=== PATIENT | female | born 1960 | race Caucasian/White ===

== ENCOUNTER → 2018-05-14 | Outpatient (CLI) | payer OTHER ==
--- NOTE | 2018-05-14 08:56 | Diagnostic Imaging Report ---
PROCEDURE:X-RAY ABDOMEN - KUB COMPARISON:CT Abdomen/Pelvis 01/06/14 report, images not available for review at the time of dictation. INDICATIONS:CHECK UP KIDNEY STONES FINDINGS: A possible 4 mm stone overlies the left lower kidney. Likely phleboliths overlie the pelvis. No dilated loops of bowel or abnormal air-fluid levels patterns. Visualized portions of the lung bases are clear. Status post cholecystectomy. Five non-rib bearing lumbar type vertebral bodies identified. Degenerative changes of the lower lumbar spine with levoconvex scoliosis centered at L3. CONCLUSION: Possible 4 mm stone overlies the left lower kidney. No other stones overlying the urinary system identified. Dictated by: MOLLY FLAHERTY M.D. on 05/14/2018 at 9:01 Electronically approved by: MOLLY FLAHERTY M.D. on 05/14/2018 at 9:01
--- NOTE | 2018-05-14 09:01 | Diagnostic Imaging Report ---
PROCEDURE:US RETROPERITONEAL ( KIDNEY ). COMPARISON:Report from MRI Abdomen 01/15/14 (images are not available for review at the time of dictation). INDICATIONS:Renal Cyst FINDINGS: Right kidney measures up to 10 cm. No evidence of hydronephrosis. There is a right inferior pole cyst measuring up to 1.9 cm. Left kidney measures up to 11.9 cm. A 7 mm non-obstructing stone is present in the left mid pole kidney without hydronephrosis. Two cysts are seen in the kidney, partially superimposed on one another. The superior pole cyst measures up to 1.3 cm and an inferior pole cyst measures up to 1.2 cm. Incidental note is made of an echogenic liver, which may reflect fatty infiltration. Bladder: unremarkable. Bilateral ureteral jets are noted. CONCLUSION: Bilateral simple appearing renal cysts. Non-obstructing 7 mm left renal stone. No evidence of hydronephrosis. Incidental echogenic appearing liver, which may reflect fatty liver. Dictated by: MOLLY FLAHERTY M.D. on 05/14/2018 at 9:06 Electronically approved by: MOLLY FLAHERTY M.D. on 05/14/2018 at 9:06
== END ==
LOC: US 07:39
PROVIDERS: ATTEND Urology
DX: N20.0 Calculus of kidney (principal); N28.1 Cyst of kidney, acquired
CPT/HCPCS: 74018; 76770

== ENCOUNTER → 2019-02-24 | Outpatient (CLI) | payer OTHER ==
--- NOTE | 2019-02-24 09:56 | Diagnostic Imaging Report ---
Exam: Abdominal film Clinical History: Calculus of kidney Comparison: None. DISCUSSION: 4-5 mm calcification projects over the lower pole of the left renal shadow. No additional calcifications project over the renal shadows or expected ureteral courses. Left pelvic rounded lucent centered calcification likely represents a phlebolith. Bowel gas pattern is nonobstructive. Levoscoliotic curvature of the lumbar spine with associated degenerative disc changes. Degenerative changes of the sacroiliac joints. No mass effect or organomegaly. Right upper quadrant surgical clips likely reflect cholecystectomy. IMPRESSION: Suspected 4-5 mm left renal calculus. Signed by: Dr. Jerry Amaya M.D. on 02/24/2019 9:52 AM
== END ==
LOC: RAD 09:18
PROVIDERS: ATTEND Urology
DX: N20.0 Calculus of kidney (principal)
CPT/HCPCS: 74018

== ENCOUNTER → 2019-09-25 | Outpatient (CLI) | payer OTHER ==
--- NOTE | 2019-09-25 09:37 | Diagnostic Imaging Report ---
Abdominal radiograph Clinical History: Calculus of kidney Comparison: 02/24/2019 DISCUSSION: No definite renal calculus identified on this examination. Phleboliths are seen within the pelvis. The bowel gas pattern is nonobstructive. There is unchanged levoscoliosis of the lumbar spine. Cholecystectomy clips are seen in the right upper quadrant. IMPRESSION: No definite renal calculi identified Signed by: Karel Ruiz MD on 09/25/2019 9:34 AM
== END ==
LOC: RAD 09:04
PROVIDERS: ATTEND Urology
DX: N20.0 Calculus of kidney (principal)
CPT/HCPCS: 74018